=== PATIENT | male | born 1980 | race African-American/Black ===

== ENCOUNTER 2018-11-25 19:12 | Emergency (ER) | payer OTHER, SELFPAY ==
[2018-11-25 19:21] VITALS: BP 143/75; PULSE 109; RESP 24; TEMP 37.1; O2SAT 100
--- NOTE | 2018-11-25 19:36 | ED_ITS ---
HPI - GI Bleed General Chief complaint: GI Bleed Stated complaint: BLOODY STOOL Time Seen by Provider: 11/25/18 19:18 Source: patient Mode of arrival: ambulatory Limitations: no limitations History of Present Illness HPI Narrative: 38-year-old nonsmoking male, otherwise healthy presents to the emergency department with a chief complaint of painless bright red blood per rectum for the past day or 2. He has never had it before and denies other symptoms. He has no fever or chills. He is not dizzy nor weak or lightheaded. He denies abdominal or rectal pain. He denies the use of blood thinners or use of NSAIDs. He denies any recent constipation or straining on the toilet. He denies any trauma or rectal foreign bodies. He states he thinks the blood is bright red and it is sometimes in the toilet bowl and sometimes when he wipes. MD complaint: blood on toilet paper and blood streaked stool Onset (ago): day(s) Pain Consistency: constant Severity: mild Relieving factors: none Exacerbating factors: none Associated symptoms: denies other symptoms Treatments Prior to Arrival: none Related Data Home Medications Medication Instructions Recorded Confirmed No Known Home Medications 11/25/18 11/25/18 Allergies Allergy/AdvReac Type Severity Reaction Status Date / Time No Known Drug Allergies Allergy Verified 11/25/18 19:23 Review of Systems Review of Systems All systems reviewed & are unremarkable except as noted in HPI and below Constitutional Denies chills, Denies fever(s), Denies lethargy and Denies weakness Eyes Denies change in vision, Denies eye discharge, Denies irritation and Denies loss of vision ENT Ears, Nose, Mouth, and Throat: Denies change in voice, Denies neck pain and Denies sore throat Cardiovascular Denies chest pain, Denies irregular heart rhythm, Denies lightheadedness, Denies palpitations, Denies dyspnea, Denies dyspnea on exertion and Denies orthopnea Respiratory Denies cough, Denies dyspnea, Denies dyspnea on exertion and Denies wheezing Gastrointestinal Gastrointestinal: Denies abdominal pain, Denies change in bowel habits, Denies diarrhea, Denies nausea and Denies vomiting Comments: rectal bleedig Genitourinary Denies hematuria, Denies flank pain, Denies urinary incontinence and Denies urinary urgency Musculoskeletal Denies neck pain Integumentary/Breasts Denies pruritus, Denies erythema, Denies rash and Denies wounds Neurologic Denies confusion, Denies loss of vision and Denies weakness Psychiatric Denies anxiety, Denies confusion, Denies depression, Denies homicidal ideation and Denies suicidal ideation Endocrine Denies palpitations Hematologic/Lymphatic Denies easy bruising Allergic/Immunologic Denies wheezing Exam Narrative Exam Narrative: GENERAL: This is a well-nourished, well-developed patient, in mild distress. HEAD: Atraumatic. Normocephalic. No temporal or scalp tenderness. EYES: Pupils equal round and reactive. Extraocular motions intact. No scleral icterus. No injection or drainage. ENT: Nose without bleeding, purulent drainage or septal hematoma. Throat without erythema, tonsillar hypertrophy or exudate. Uvula midline. Airway patent. NECK: Trachea midline. No JVD or lymphadenopathy. Supple, nontender, no meningeal signs. CARDIOVASCULAR: Regular rate and rhythm without murmurs, gallops, or rubs. RESPIRATORY: Clear to auscultation. Breath sounds equal bilaterally. No wheezes , rales, or rhonchi. GASTROINTESTINAL: Abdomen soft, non-tender, nondistended. No hepato-splenomegaly , or palpable masses. No guarding. RECTAL: minimal BRBPR. No obvious mass, hemorrhoid, or fissure EXTREMITIES: No clubbing, cyanosis, or edema. No joint tenderness, effusion, or edema noted. BACK: Nontender without deformity or crepitance. No flank tenderness. NEURO: AOx3.SKIN: No rash or erythema. Initial Vital Signs Initial Vital Signs: Vital Signs Temperature 98.8 F 11/25/18 19:21 Pulse Rate 109 H 11/25/18 19:21 Respiratory Rate 24 11/25/18 19:21 Blood Pressure 143/75 H 11/25/18 19:21 Pulse Oximetry 100 11/25/18 19:21 Course Orders Ordered: ED Orders 11/25/18 19:30 Basic Metabolic Panel Stat Complete Blood Count AUTO DIFF Stat Prothrombin Time INR Stat Discontinued Medications Sodium Chloride (Normal Saline 0.9%) 1,000 mls @ 1,000 mls/hr IV BOLUS ONE Stop: 11/25/18 21:18 Last Infusion: 11/25/18 21:10 Dose: 0 mls/hr Admin: 11/25/18 20:26 Dose: 1,000 mls/hr Vital Signs - 8 hr 11/25/18 19:21 11/25/18 21:17 Temperature 98.8 F Pulse Rate 109 H 94 H Respiratory Rate 24 14 Blood Pressure 143/75 H 177/88 H Pulse Oximetry 100 99 MDM - GI Bleed Lab Data Result diagrams: 11/25/18 19:30 11/25/18 19:30 Lab Results 11/25/18 11/25/18 11/25/18 Range/Units 19:30 19:30 19:30 WBC 9.4 (4.5-11.0) X10^3/uL RBC 5.28 (4.5-5.9) X10^6/uL Hgb 15.1 (13.5-17.5) g/dL Hct 44.8 (41-53) % MCV 85.0 (80-100) fL MCH 28.7 (26-34) PG MCHC 33.8 (30-36) % RDW 12.9 (11.6-14.8) % Plt Count 306 (150-400) X10^3/uL Neut % (Auto) 71.7 (50-75) % Lymph % (Auto) 20.0 L (25-40) % [place] % (Auto) 5.1 (3-14) % Eos % (Auto) 2.3 (2-4) % Baso % (Auto) 0.9 (0-2) % Neut # (Auto) 6800 (1902-7958) /uL PT 13.1 H (10.1-12.7) SECONDS INR 1.1 (0.9-1.3) Sodium 141 (137-145) mmol/L Potassium 3.9 (3.4-5.1) mmol/L Chloride 106 (98-107) mmol/L Carbon Dioxide 24 (22-32) mmol/L BUN 12 (9-20) mg/dL Creatinine 1.30 H (0.66-1.25) mg/dL Estimated GFR > 60.0 (>60) mL/min BUN/Creatinine Ratio 9.2 (6-22) Glucose 185 H (70-100) mg/dL Calcium 9.3 (8.4-10.2) mg/dL Discharge Plan Departure Patient Disposition: Home Clinical Impression: Bright red rectal bleeding Discharge Date/Time: 11/25/18 21:17 Interventions: ED Discharge Assessment Last Done: 11/25/18 21:17 Instructions: DI for Rectal Bleeding Activity Restrictions/Additional Instructions: *You have been diagnosed with [ rectal bleeding ] *What to do: *Be sure to stay well hydrated and eat foods high in fiber *Follow up with your primary care provider in 2-3 days, call for an appointment. Let them know you were seen in the Emergency Department and that we ask that you be seen in follow up. They will discuss further options with you which may include medications of other options such as colonoscopy *Return to ER if you should have any new, worsening or concerning symptoms , such as [ worsening bleeding, increasing pain, fever >101, or other bothersome symptoms] Prescriptions: No Action No Known Home Medications RF: 0
[2018-11-25 19:43] LABS: Add Manual Diff / Slide Review NO; Basophils Percent Auto 0.9 % (0-2); Eosinophils Percent Auto 2.3 % (2-4); Hematocrit 44.8 % (41-53); Hemoglobin 15.1 g/dL (13.5-17.5); Mean Corpuscular HGB Conc 33.8 % (30-36); Mean Corpuscular Hemoglobin 28.7 PG (26-34); Monocytes Percent Auto 5.1 % (3-14); Neutrophils Absolute Auto 6800 /uL (1500-7000); Neutrophils Percent Auto 71.7 % (50-75); Platelet Count 306 X10^3/uL (150-400); Red Blood Cell Count 5.28 X10^6/uL (4.5-5.9); Red Cell Distribution Width 12.9 % (11.6-14.8); White Blood Cell Count 9.4 X10^3/uL (4.5-11.0)
[2018-11-25 19:51] LABS: INR 1.1 (0.9-1.3); Prothrombin Time 13.1 SECONDS (10.1-12.7)
[2018-11-25 19:54] LABS: BUN Creatinine Ratio 9.2 (6-22); Blood Urea Nitrogen 12 mg/dL (9-20); Calcium 9.3 mg/dL (8.4-10.2); Carbon Dioxide 24 mmol/L (22-32); Chloride 106 mmol/L (98-107); Estimated Glomerular Filt Rate > 60.0 mL/min (>60); Glucose 185 mg/dL (70-100); HEMOLYSIS < 15 (0-50); Potassium 3.9 mmol/L (3.4-5.1); Sodium 141 mmol/L (137-145)
[2018-11-25] MEDS: SODIUM CHLORIDE 0.9% 1,000 ML 1000 ML IV (20:26)
[2018-11-25 21:17] VITALS: BP 177/88; PULSE 94; RESP 14; O2SAT 99
== END 2018-11-25 21:17 | disposition home or self-care (01) ==
PROVIDERS: Emergency Provider Emergency Medicine
DX: K92.1 Melena (principal)
CPT/HCPCS: 36591; 80048; 85025; 85610; 96360; 99283; 99284